=== PATIENT | male | born 1985 | race Caucasian/White ===

== ENCOUNTER 2019-07-11 09:13 | Emergency (ER) | payer SELFPAY ==
[~2019-07-11] VITALS: Ht 180.3 cm; Wt 99.8 kg
[~2019-07-11 09:13] MED LIST: LOMOTIL 0.025 M1 TAB PO
[2019-07-11 09:16] VITALS: BP 135/93
[2019-07-11] MEDS ORDERED: NAPROSYN500 MG PO (09:37)
[2019-07-11] MEDS ORDERED: PENICILLIN VK500 MG PO (09:37)
== END 2019-07-11 09:45 | disposition home or self-care (01) ==
LOC: ED 09:13
DX: K04.7 Periapical abscess without sinus (principal)

== ENCOUNTER 2020-01-08 17:26 | Emergency (ER) | payer SELFPAY ==
[~2020-01-08] VITALS: Ht 180.3 cm; Wt 104.3 kg
[~2020-01-08 17:26] MED LIST changes: +NAPROSYN500 MG PO; +PENICILLIN VK500 MG PO
[2020-01-08 17:41] VITALS: BP 121/76
[2020-01-08] MEDS ORDERED: Kenalog 0.5% Cr15 GM T (17:51)
[2020-01-08] MEDS ORDERED: VISTARIL25 MG PO (17:51)
== END 2020-01-08 17:54 | disposition home or self-care (01) ==
LOC: ED 17:26
DX: L25.9 Unspecified contact dermatitis, unspecified cause (principal); Z91.030 Bee allergy status; Z79.899 Other long term (current) drug therapy; Z90.49 Acquired absence of other specified parts of digestive tract

== ENCOUNTER 2023-10-24 17:03 | Emergency (ER) | payer BC ==
[~2023-10-24] VITALS: Ht 177.8 cm; Wt 99.8 kg
[~2023-10-24 17:03] MED LIST changes: +Kenalog 0.5% Cr15 GM T; +VISTARIL25 MG PO
[2023-10-24 17:18] VITALS: BP 151/99
[2023-10-24] MEDS ORDERED: SODIUM CHLORIDE 0.9% 1,000 ML IV ONE (17:25)
[2023-10-24] MEDS ORDERED: Ondansetron Hydrochloride 4 MG/2 ML VIAL IV ONE (17:25)
[2023-10-24 17:45] LABS: BASO % 0.6 % (0.0-1.0); EOS % 0.3 % (1.0-4.0); HEMATOCRIT 49.5 % (42.0-52.0); LYMPH # 1.2 10*3/uL (1.3-4.4); LYMPH % 19.6 % (27.0-41.0); MEAN CELL VOLUME 92.2 fl (80.0-94.0); MEAN CORPUSCULAR HGB CONC 34.7 g/dl (33.0-37.0); MEAN PLATELET VOLUME 9.9 fl (9.6-12.3); MONO # 0.5 10*3/uL (0.1-1.0); MONO % 7.8 % (3.0-9.0); NEUT # 4.4 10*3/uL (2.3-7.9); NEUT % 71.4 % (47.0-73.0); PLATELET COUNT AUTOMATED 208 10*3/uL (130-400); RED BLOOD COUNT 5.37 10*6/uL (4.50-5.90); RED CELL DISTRI WIDTH 12.2 % (0-14.5); WHITE BLOOD COUNT 6.2 10*3/uL (4.8-10.8)
[2023-10-24 18:04] LABS: CHLORIDE 104 mmol/L (98-107); LIPASE 39 U/L (12-53); POTASSIUM 3.6 mmol/L (3.4-5.1)
[2023-10-24 18:10] LABS: BUN < 5 mg/dl (9-23)
[2023-10-24 18:38] LABS: BILIRUBIN Negative (Negative); BLOOD Negative (Negative); CLARITY Clear (Clear); COLOR Yellow (Yellow); GLUCOSE Negative (Negative); KETONE Negative (Negative); LEUKO ESTERASE Negative (Negative); NITRITE Negative (Negative); SPECIFIC GRAVITY <= 1.005 (1.001-1.030); UROBILINOGEN 0.2 E.U./dl (0.0-1.0)
[2023-10-24 18:48] LABS: EPITHELIAL CELLS 0-2; RBC 0-2 rbc/hpf (0-2); WBC 0-2 wbc/hpf (0-5)
[2023-10-24] MEDS ORDERED: ONDANSETRON4 MG SL (20:01)
== END 2023-10-24 20:23 | disposition home or self-care (01) ==
LOC: ED 17:03
PROVIDERS: Nurse Practitioner Family
DX: A08.4 Viral intestinal infection, unspecified (principal); E86.0 Dehydration; R19.7 Diarrhea, unspecified; Z91.030 Bee allergy status; Z88.8 Allergy status to other drugs, medicaments and biological substances; Z90.49 Acquired absence of other specified parts of digestive tract; Z87.891 Personal history of nicotine dependence

== ENCOUNTER → 2024-03-20 | Outpatient (CLI) | payer MEDICAID ==
[~2024-03-20] MED LIST changes: +ONDANSETRON4 MG SL
[2024-03-20 13:39] LABS: FREE T4 1.33 ng/dl (0.89-1.76)
[2024-03-21 08:10] LABS: HEPATITIS B SURFACE AB Non Reactive (.); HEPATITIS B SURFACE AG Negative (Negative)
[2024-03-21 15:08] LABS: t-TRANSGLUTAMINASE (tTG) IGA <2 U/mL (0-3); t-TRANSGLUTAMINASE (tTG) IgG 3 U/mL (0-5)
== END | disposition home or self-care (01) ==
LOC: LAB 12:15
PROVIDERS: ATTEND Specialist
DX: R10.84 Generalized abdominal pain (principal); K90.9 Intestinal malabsorption, unspecified; R19.4 Change in bowel habit; R63.4 Abnormal weight loss